=== PATIENT | male | born 2000 | race African-American/Black ===

== ENCOUNTER 2024-08-16 21:37 | Inpatient (IN) | payer BC, OTHER ==
[~2024-08-16] VITALS: Ht 175.3 cm; Wt 56.8 kg
[2024-08-16 22:32] LABS: BASO % 0.5 % (0.0-1.0); EOS # 0.1 10^3/uL (0.0-0.5); EOS % 0.8 % (0.0-3.0); HEMATOCRIT 41.4 % (42.0-52.0); HEMOGLOBIN 14.4 g/dl (13.5-17.5); LYMPH # 1.1 10^3/uL (1.5-5.0); MEAN CORPUSCULAR HEMOGLOBIN 30.8 pg (27.0-33.0); MEAN CORPUSCULAR HGB CONC 34.8 g/dl (32.0-36.5); MEAN CORPUSCULAR VOLUME 88.7 fl (80.0-96.0); MONO # 0.3 10^3/uL (0.0-0.8); MONO % 5.3 % (2.0-8.0); NEUTROPHILS # 4.4 10^3/uL (1.5-8.5); NEUTROPHILS % 75.1 % (36.0-66.0); PLATELET COUNT, AUTOMATED 230 10^3/uL (150-450); RED BLOOD COUNT 4.67 10^6/uL (4.30-6.10); WHITE BLOOD COUNT 5.9 10^3/uL (4.0-10.0)
[2024-08-16] MEDS: KETOROLAC 30 MG/ML 1ML VIAL IV ONE (22:34)
[2024-08-16] MEDS: ONDANSETRON 4MG 2ML VIAL IV ONE (22:34)
[2024-08-16 22:57] LABS: LIPASE 46 U/L (12-53)
[2024-08-16 23:13] LABS: ALBUMIN 4.4 G/DL (3.2-5.2); ALKALINE PHOSPHATASE 69 U/L (40-129); ALT/SGPT 21 U/L (7.0-40); AST/SGOT 17 U/L (<34); BILIRUBIN,DIRECT 0.2 MG/DL (<0.4); BILIRUBIN,TOTAL 0.6 MG/DL (0.3-1.2); BLOOD UREA NITROGEN 15 MG/DL (9-23); CALCIUM LEVEL 9.9 MG/DL (8.5-10.1); CARBON DIOXIDE LEVEL 28 MMOL/L (20-31); CHLORIDE LEVEL 106 MMOL/L (98-107); CREATININE FOR GFR 1.01 MG/DL (0.70-1.30); GLOMERULAR FILTRATION RATE > 60.0 (>60); GLUCOSE, FASTING 132 MG/DL (60-100); POTASSIUM SERUM 4.1 MMOL/L (3.5-5.1); SODIUM LEVEL 140 MMOL/L (136-145); TOTAL PROTEIN 7.8 G/DL (5.7-8.2)
[2024-08-16] MEDS ORDERED: ISOVUE-370 76% 100ML VIAL As Ordered ONE (23:20)
[2024-08-17] MEDS: METOCLOPRAMIDE INJ 10MG/2ML VIAL IV ONE (00:08)
[2024-08-17] MEDS: MORPHINE 4 MG/ML 1ML VIAL IV PRN (00:08)
[2024-08-17 00:44] LABS: PROCALCITONIN 0.04 ng/ml
[2024-08-17] MEDS ORDERED: HOME MED LIST COMPLETE! XX SCH (00:55)
[2024-08-17] MEDS ORDERED: ACETAMINOPHEN 325 MG TAB PO PRN (02:05)
[2024-08-17] MEDS ORDERED: ONDANSETRON 4MG 2ML VIAL IV PRN (02:10)
[2024-08-17] MEDS: NS 1,000 ML IV SCH (03:10)
[2024-08-17 03:14] VITALS: BP 123/82; TEMP 98.1; O2SAT 98
[2024-08-17 04:50] LABS: HEMATOCRIT 38.1 % (42.0-52.0); HEMOGLOBIN 13.5 g/dl (13.5-17.5); MEAN CORPUSCULAR HEMOGLOBIN 31.5 pg (27.0-33.0); MEAN CORPUSCULAR HGB CONC 35.4 g/dl (32.0-36.5); PLATELET COUNT, AUTOMATED 248 10^3/uL (150-450); RED BLOOD COUNT 4.28 10^6/uL (4.30-6.10); WHITE BLOOD COUNT 5.8 10^3/uL (4.0-10.0)
[2024-08-17 05:15] LABS: ALKALINE PHOSPHATASE 71 U/L (40-129); ALT/SGPT 23 U/L (7.0-40); AST/SGOT 16 U/L (<34); BILIRUBIN,TOTAL 0.5 MG/DL (0.3-1.2); BLOOD UREA NITROGEN 17 MG/DL (9-23); CALCIUM LEVEL 9.6 MG/DL (8.5-10.1); CARBON DIOXIDE LEVEL 27 MMOL/L (20-31); CHLORIDE LEVEL 110 MMOL/L (98-107); CREATININE FOR GFR 0.96 MG/DL (0.70-1.30); GLOMERULAR FILTRATION RATE > 60.0 (>60); GLUCOSE, FASTING 107 MG/DL (60-100); POTASSIUM SERUM 4.8 MMOL/L (3.5-5.1); SODIUM LEVEL 142 MMOL/L (136-145); TOTAL PROTEIN 6.8 G/DL (5.7-8.2)
[2024-08-17 08:39] LABS: MAGNESIUM LEVEL 1.9 MG/DL (1.8-2.4)
[2024-08-17] MEDS: PANTOPRAZOLE 40MG VIAL IV SCH (09:24)
[2024-08-17] MEDS ORDERED: GASTROGRAFIN SOLUTION 30ML As Ordered ONE (10:15)
[2024-08-17 12:00] VITALS: BP 151/97; TEMP 98.1; O2SAT 99
[2024-08-17] MEDS: ENOXAPARIN 40MG/0.4ML SYRINGE (J1650 PER 10MG) SC SCH (12:38)
[2024-08-17] MEDS: KETOROLAC 30 MG/ML 1ML VIAL IV PRN (15:17)
[2024-08-17 20:19] VITALS: BP 144/97; TEMP 97.3; O2SAT 99
[2024-08-17 20:36] VITALS: BP 150/94
[2024-08-17 20:45] VITALS: BP 140/88
[2024-08-18 03:54] VITALS: BP 138/96; TEMP 98.1; O2SAT 98
[2024-08-18] MEDS: PANTOPRAZOLE 40MG VIAL IV SCH (08:16)
[2024-08-18 08:33] VITALS: BP 142/86; TEMP 97.7; O2SAT 100
== END 2024-08-18 11:50 | disposition left against medical advice (07) | DRG 382 ==
LOC: M ED 21:37 → M ED INP 08-17 02:01 → M MS5PR 08-17 03:08
PROVIDERS: ADMIT Internal Medicine; ATTEND Internal Medicine
DX: K31.1 Adult hypertrophic pyloric stenosis (principal)